=== PATIENT | male | born 1965 | race American Indian/Alaskan Native ===

== ENCOUNTER 2016-08-31 18:37 | Outpatient (CLI) | payer OTHER ==
--- NOTE | 2016-09-01 09:34 | XRay Report ---
Left shoulder 3 views: History: Left shoulder pain. Findings: Mild arthritic changes a.c. joint. Glenohumeral joint and the acromiohumeral space appears unremarkable. No soft tissue calcification. Impression: Arthritic changes a.c. joint.
== END 2016-08-31 18:38 | disposition home or self-care (01) ==
LOC: XRAY 18:37
PROVIDERS: ATTEND Nurse Practitioner
DX: M25.512 Pain in left shoulder (principal)

== ENCOUNTER 2017-01-17 05:35 | Emergency (ER) | payer OTHER ==
[2017-01-17 05:49] VITALS: BP 151/100
--- NOTE | 2017-01-17 06:23 | XRay Report ---
FINAL REPORT EXAM: XR KNEE 1-2V RT HISTORY: right knee pain TECHNIQUE: 2 views of the right knee PRIORS: None. FINDINGS: There is no evidence of acute fracture. There is no evidence of joint dislocation. There is no evidence of joint effusion. There is no significant focal osseous lesions seen. IMPRESSION: There is no acute abnormality identified.
[2017-01-17] MEDS ORDERED: ULTRAM PO ONE (07:21)
--- NOTE | 2017-01-17 07:49 | Emergency Department Report ---
ED Lower Extremity HPI - General Chief Complaint: Extremity Injury, Lower Stated Complaint: KNEE PROBLEMS Time Seen by Provider: 01/17/17 07:20 Source: patient Mode of arrival: Ambulatory Limitations: No Limitations - History of Present Illness Initial Comments: right knee pain x 3 months has ortho follow up to be reevaluated next week at [facility], presents today pain 5/10 aching denies new fall injury or trauma, pain is exacerbated by prolong standing and flexion pain is relieved by rest. MD Complaint: knee injury Onset/Timin -: month(s) Injury: Knee: Right (pain aching no swelling ) Type of Injury: blunt Place: home Severity: moderate Severity scale (0 -10): 5 Improves With: rest Worsens With: weight bearing, movement, palpation Context: direct blow, other (versus car door 3 months ago ) Associated Symptoms: ambulatory - Related Data Previous Rx's Medication Instructions Recorded Last Taken Type Clindamycin [Clindamycin CAP] 600 mg PO BID #20 capsule 05/09/14 Unknown Rx HYDROcodone/APAP 10-325 [Ravia 1 each PO Q4H PRN #20 tablet 05/09/14 Unknown Rx 10-325 mg TAB] Ibuprofen [Motrin 800 MG tab] 400 mg PO Q6H PRN #20 tablet 05/09/14 Unknown Rx Amoxicillin [Amoxicillin TAB] 875 mg PO BID #20 tablet 03/10/15 Unknown Rx Promethazine [Phenergan TAB] 25 mg PO Q6HR PRN #10 tab 03/10/15 Unknown Rx Cyclobenzaprine [Flexeril] 10 mg PO TID PRN #30 tablet 01/17/17 Unknown Rx Naproxen [Naprosyn TAB] 500 mg PO BID PRN #30 tablet 01/17/17 Unknown Rx Allergies Allergy/AdvReac Type Severity Reaction Status Date / Time No Known Allergies Allergy Verified 03/10/15 14:43 ED Review of Systems ROS: Stated complaint: KNEE PROBLEMS Other details as noted in HPI Constitutional: denies: chills, fever Eyes: denies: eye pain, eye discharge, vision change ENT: denies: ear pain, throat pain Respiratory: denies: cough, shortness of breath, wheezing Cardiovascular: as per HPI Endocrine: no symptoms reported Gastrointestinal: denies: abdominal pain, nausea, diarrhea Genitourinary: denies: urgency, dysuria Musculoskeletal: myalgia Skin: denies: rash, lesions Neurological: as per HPI Psychiatric: denies: anxiety, depression Hematological/Lymphatic: denies: easy bleeding, easy bruising ED Past Medical Hx - Past Medical History Previous Medical History?: No Hx Hypertension: No Hx Congestive Heart Failure: No Hx Diabetes: No Hx Liver Disease: No Hx Renal Disease: No Hx Sickle Cell Disease: No Hx Seizures: No Hx Asthma: No Hx COPD: No - Surgical History Past Surgical History?: No - Social History Smoking Status: Current Every Day Smoker Substance Use Type: None - Medications Home Medications: Home Medications Medication Instructions Recorded Confirmed Last Taken Type Clindamycin [Clindamycin CAP] 600 mg PO BID #20 capsule 05/09/14 Unknown Rx HYDROcodone/APAP 10-325 [Ravia 1 each PO Q4H PRN #20 tablet 05/09/14 Unknown Rx 10-325 mg TAB] Ibuprofen [Motrin 800 MG tab] 400 mg PO Q6H PRN #20 tablet 05/09/14 Unknown Rx Amoxicillin [Amoxicillin TAB] 875 mg PO BID #20 tablet 03/10/15 Unknown Rx Promethazine [Phenergan TAB] 25 mg PO Q6HR PRN #10 tab 03/10/15 Unknown Rx Cyclobenzaprine [Flexeril] 10 mg PO TID PRN #30 tablet 01/17/17 Unknown Rx Naproxen [Naprosyn TAB] 500 mg PO BID PRN #30 tablet 01/17/17 Unknown Rx ED Physical Exam - General Limitations: No Limitations General appearance: alert, in no apparent distress - Head Head exam: Present: atraumatic, normocephalic - Eye Eye exam: Present: normal appearance - ENT ENT exam: Present: mucous membranes moist - Neck Neck exam: Present: normal inspection - Respiratory Respiratory exam: Present: normal lung sounds bilaterally. Absent: respiratory distress - Cardiovascular Cardiovascular Exam: Present: regular rate, normal rhythm. Absent: systolic murmur, diastolic murmur, rubs, gallop - GI/Abdominal GI/Abdominal exam: Present: soft, normal bowel sounds - Rectal Rectal exam: Present: deferred - Expanded Lower Extremity Exam Right Hip exam: Present: normal inspection, full ROM Upper Leg exam: Present: normal inspection, full ROM Knee exam: Present: tenderness, pain w/ pronation/supination, full knee extension. Absent: swelling, abrasion, laceration, ecchymosis, deformity, crepidus, dislocation, erythema, effusion, posterior draw sign, pain/laxity with valgus, pain/laxity with varus Lower Leg exam: Present: normal inspection, full ROM Ankle exam: Present: normal inspection, full ROM Foot/Toe exam: Present: normal inspection, full ROM Neuro vascular tendon exam: Present: no vascular compromise. Absent: pulse deficit, abnormal cap refill, motor deficit, sensory deficit, tendon deficit, extremity cold to touch, pallor, abnormal 2-point discrimination, decreased fine /light touch, foot drop, peroneal nerve deficit, significant pain with passive ROM of distal joint Gait: Positive: observed and normal - Back Exam Back exam: Present: normal inspection, full ROM. Absent: tenderness, CVA tenderness (R), CVA tenderness (L), muscle spasm, paraspinal tenderness, vertebral tenderness, rash noted - Neurological Exam Neurological exam: Present: alert, oriented X3, CN II-XII intact, normal gait, reflexes normal - Psychiatric Psychiatric exam: Present: normal affect, normal mood - Skin Skin exam: Present: warm, dry, intact, normal color. Absent: rash ED Course Vital Signs 01/17/17 05:43 Temperature 98.6 F Pulse Rate 96 H Respiratory 18 Rate Blood Pressure 151/100 O2 Sat by Pulse 96 Oximetry ED Lower Extremity MDM - Radiology Data Radiology results: report reviewed normal knee xray no fracture no soft tissue injury - Medical Decision Making pt is a 51 y/o aam who presents for right knee pain s/p knee versus care door 3 months ago aching and pain exacerbated last week pending ortho follow up next week complains of 5/10 aching , pain relieved with naproxen , exam: normal knee joint to exam no erythema no swelling no draw full extension ambulatory gait steady knee xray normal will refill naproxen and muscle relaxant pt willl follow up with ortho as scheduled pt verbalized agreement and understanding with discharge plan. pt remains ambualtory to baseline at this time. Critical care attestation.: If time is entered above; I have spent that time in minutes in the direct care of this critically ill patient, excluding procedure time. ED Disposition Clinical Impression: Knee strain Qualifiers: Encounter type: subsequent encounter Laterality: right Qualified Code(s): S86.911D - Strain of unspecified muscle(s) and tendon(s) at lower leg level, right leg, subsequent encounter Knee pain, acute Qualifiers: Laterality: right Qualified Code(s): M25.561 - Pain in right knee Disposition: TO HOME OR SELFCARE Is pt being admited?: No Does the pt Need Aspirin: No Condition: Good Instructions: Knee Pain (ED), Knee Exercises (GEN) Additional Instructions: follow up with [facility] next week as ordered Prescriptions: Cyclobenzaprine [Flexeril] 10 mg PO TID PRN #30 tablet PRN Reason: Muscle Spasm Naproxen [Naprosyn TAB] 500 mg PO BID PRN #30 tablet PRN Reason: Pain Time of Disposition: 07:55
== END 2017-01-17 08:07 | disposition home or self-care (01) ==
LOC: ED 05:35
DX: S83.91XA Sprain of unspecified site of right knee, initial encounter (principal); F17.210 Nicotine dependence, cigarettes, uncomplicated; X58.XXXA Exposure to other specified factors, initial encounter; Y93.89 Activity, other specified; Y92.89 Other specified places as the place of occurrence of the external cause; Y99.8 Other external cause status
CPT/HCPCS: 99283